=== PATIENT | female | born 1950 | race Caucasian/White ===

== ENCOUNTER → 2018-04-21 | Outpatient (CLI) | payer OTHER ==
--- NOTE | ~2018-04-21 | SLE ---
[facility] [address] POLYSOMNOGRAPHY STUDY Name: CHELA KIMHERINE Room #: REG [facility]#: [id number] Admission: 04/21/18 Attend Phys: Domenico Calles MD Discharge: Date of : 46 Report #: [id number] THIS REPORT FOR: //name// CC: Domenico Kirkland MD DATE OF SERVICE: 04/21/2018 ATTENDING PHYSICIAN: Dr. Filemon Kirkland. The patient is a 67-year-old who weighs 218 pounds and is 67 inches tall with a BMI of 34.1. The patient's Dresden score was 3. The patient underwent split night study performed by [facility]. During the night study, the patient spent 451 minutes in bed and slept for 337 minutes with a sleep efficiency of 75%. Sleep latency was 19.1 minutes with a REM latency of 290.1 minutes. Overall sleep architecture showed increased stage 1 and stage 2 sleep, absent N3 sleep and reduced REM sleep, which was 6.5% of the total sleep time. During the initial diagnostic portion of the study, the patient spent 156 minutes in bed and slept for 117 minutes. During that time, the patient had 1 obstructive and 1 central apnea and 49 hypopneas. The patient's apnea-hypopnea index was 26 per hour. REM sleep was not seen during the diagnostic portion of the study. The patient's supine index was 65 per hour. EKG monitoring revealed normal sinus rhythm. Average heart rate was 62 beats per minute. No sustained arrhythmias were observed. No clinically significant PLMS observed. PLM index was only 2 per hour during the diagnostic portion. Nocturnal oximetry study during the diagnostic portion revealed an average oxygen saturation of 94% with the lowest of 89%. No significant desaturation of less than 89% observed. The patient met the criteria for CPAP initiation. It was started at 5 cm water and titrated up to 11 cm water. The patient started to have some central apneas with increasing pressure, ( Treatment emergent central apneas ). Teletype Mechanic did switch the patient to BiPAP starting at 11/8 and titrating up to 14/10. However, central apneas did persist. Best results were obtained at a CPAP pressure of 11 cm water. At that pressure the patient slept for 73.9 minutes with 22 minutes of REM sleep. The patient also had supine sleep at the same pressure. The patient's AHI was 0.8 per hour. Oxygen saturations remained above 89%. [facility] [address] [place] [address] POLYSOMNOGRAPHY STUDY Name: CHELA KIM Room #: REG [facility]#: [id number] Admission: 04/21/18 Attend Phys: Domenico Calles MD Discharge: Date of : 46 Report #: [id number] IMPRESSION: 1. Moderate sleep apnea-hypopnea syndrome with worsening during supine sleep. Total apnea-hypopnea index 26 per hour with a supine apnea-hypopnea index of 65 per hour. Absence of REM sleep during the diagnostic portion of the study can underestimate the severity of sleep apnea. 2. No clinically significant periodic limb movements of sleep. 3. No clinically significant nocturnal hypoxia. RECOMMENDATIONS: 1. CPAP at 11 cm water resulted in elimination of the patient's sleep apnea and should be used on a nightly basis. The patient developed treatment emergent central apneas at higher pressures. 2. Follow up in 4-6 weeks to assess compliance with CPAP and to document clinical improvement. 3. Weight loss is strongly advised. 4. 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 5. Cautioned regarding driving until symptoms of sleep apnea have resolved with the use of CPAP. 6. Avoid supine Sleep. <ELECTRONICALLY SIGNED> By: Domenico Calles MD 04/23/182100 [id number] Domenico Calles MD /nt
== END ==
LOC: SLEEPLAB 11:35
DX: G47.33 Obstructive sleep apnea (adult) (pediatric) (principal)

== ENCOUNTER → 2019-07-21 | Outpatient (CLI) | payer OTHER | LOC: CAT 12:30 | DX: Z13.6 Encounter for screening for cardiovascular disorders (principal); I25.10 Atherosclerotic heart disease of native coronary artery without angina pectoris; E78.00 Pure hypercholesterolemia, unspecified ==

== ENCOUNTER → 2019-08-01 | Outpatient (CLI) | payer OTHER | LOC: SJCVC 11:18 | DX: I49.8 Other specified cardiac arrhythmias (principal); I25.10 Atherosclerotic heart disease of native coronary artery without angina pectoris; I10 Essential (primary) hypertension; E78.5 Hyperlipidemia, unspecified; G47.33 Obstructive sleep apnea (adult) (pediatric); Z96.641 Presence of right artificial hip joint; Z79.899 Other long term (current) drug therapy; Z87.891 Personal history of nicotine dependence ==

== ENCOUNTER → 2019-08-14 | Outpatient (CLI) | payer OTHER | LOC: SJCVCIMAG 07:56 | DX: I08.3 Combined rheumatic disorders of mitral, aortic and tricuspid valves (principal) ==

== ENCOUNTER 2019-12-29 07:55 | Inpatient (IN) | payer OTHER ==
[2019-12-22 10:44] LABS: URINE BILIRUBIN NEGATIVE (Negative); URINE BLOOD TRACE (Negative); URINE CLARITY CLEAR; URINE COLOR YELLOW; URINE GLUCOSE-RANDOM* NEGATIVE (Negative); URINE KETONES NEGATIVE (Negative); URINE LEUKOCYTES-REFLEX NEGATIVE (Negative); URINE NITRITE-REFLEX NEGATIVE (Negative); URINE PROTEIN (DIPSTICK) NEGATIVE (Negative); URINE UROBILINOGEN 0.2 E.U./dl (0.2-1.0)
[2019-12-22 10:49] LABS: HEMATOCRIT 39.9 % (37.0-47.0); HEMOGLOBIN 13.4 gm/dL (12.0-15.0); MCHC 33.7 g/dL (28.0-37.0); MCV 89.1 fL (80.0-100.0); RBC 4.48 mil/uL (4.20-5.00); RDW 13.6 % (10.5-14.5); WBC 5.3 thou/uL (4.0-11.0)
[2019-12-22 10:57] LABS: ALBUMIN 3.5 g/dL (3.4-5.0); CALCIUM 8.7 mg/dL (8.5-10.1); CREATININE 0.7 mg/dL (0.6-1.0); POTASSIUM 4.1 mmol/L (3.5-5.1)
[2019-12-22 11:04] LABS: INR 1.1; PROTIME 11.4 Seconds (9.3-11.4)
[2019-12-29] VITALS (9 sets, daily range): BP systolic 98–157; BP diastolic 54–84
[~2019-12-29] VITALS: Ht 170.2 cm; Wt 113.4 kg
[~2019-12-29 07:55] MED LIST: ASPIR 8181 M1 PO; KEPPRA 500 MG500 M1 PO; LEVOXYL125 MCG PO; LEXAPRO 10 MG T10 M1 PO; LIPITOR 20 MG T20 M1 PO; MUCINEX600 MG PO; PRESERVISION A1 EAC2 PO; PRILOSEC OTC20 MG PO; TUMS200 MG PO; VITAMIN E100 UNI3 PO
--- NOTE | 2019-12-29 14:58 | NUR ---
chart review. cm visited with pt at bedside, with own face mask and goggles on. intro to cm, dcp and transition of care, ie dme needs, hh, and or outpt therapy if needed. pt here with OLAMIDE. elzbieta reported " live in house with granddaughter and great granddaughter. manage own medication and finances. drives vehicle. independent, use cpap at home. no home oxygen, and walker. had hip done in past but not at knee. might need hh but not sure yet"/elzbieta. will cont following as needed for dc needs.
--- NOTE | 2019-12-29 19:16 | NUR ---
PT VSS...VOIDED WELL...PAIN FAIRLY WELL CONTROLLED WITH MEDS...ICE TO KNEE PRN...
--- NOTE | 2019-12-30 02:41 | NUR ---
ASSESSMENT COMPLETED. PT IS ALERT AND ORIENTED. S/P LEFT KNEE. PT HAS A ROSAURA DRSG AND HEMOVAC IN PLACE. THTH AND SCDS IN PLACE TOO.WE TRIED TO GET PATIENT TO THE BSC EARLIER IN THE SHIFT, SHE GOT SO DANGEROUSLY DIZZY-WILL USE BEDPAN FOR REST OF NOC AND WAIT TILL PT GETS HER UP TOMORROW.PERCOCET GIVEN FOR PAIN. LEFT FOOT IS WARM WITH GOOD CAP REFILL.SHE IS USING CPAP WITH CONT PULSE OX IN PLACE. AFEBRILE.WILL CONTINUE WITH POC TILL EOS.
[2019-12-30 04:41] VITALS: BP 97/52
[2019-12-30 06:03] LABS: HEMATOCRIT 30.1 % (37.0-47.0); MCH 30.4 pg (26.0-34.0); MCHC 33.4 g/dL (28.0-37.0); MCV 91.1 fL (80.0-100.0); RBC 3.3 mil/uL (4.20-5.00); RDW 13.5 % (10.5-14.5); WBC 8.3 thou/uL (4.0-11.0)
[2019-12-30 07:20] VITALS: BP 114/57
--- NOTE | 2019-12-30 07:44 | O ---
[facility] [place] [address] OPERATIVE REPORT Name: CHELA KIM Room #: 445-P ADM IN M.R.#: [id number] Admission: 12/29/19 Attend Phys: Harshad Alves MD Discharge: Date of : 46 Report #: [id number] THIS REPORT FOR: cc: Tab Bangura,Harshad Santizo MD ~ CC: Harshad Bangura DATE OF SERVICE: 12/29/2019 PREOPERATIVE DIAGNOSIS: End-stage degenerative arthritis, left knee with moderate valgus malalignment. POSTOPERATIVE DIAGNOSIS: End-stage degenerative arthritis, left knee with moderate valgus malalignment. PROCEDURE: Left total knee arthroplasty. SURGEON: Harshad Alves MD INDICATIONS: This heavy, deconditioned 69-year-old female presents with progressive bilateral knee pain, worse on the left than the right. Both knees demonstrate moderate valgus malalignment and the left knee has become gradually more unstable clinical exam and x-rays confirmed significant degenerative arthritis with significant joint pain and crepitus in all 3 compartments. She has elected to go ahead with left total knee arthroplasty. DESCRIPTION OF PROCEDURE: The patient was taken to the operating room where she was placed under general anesthesia. A femoral nerve block was applied. Preoperative prophylactic antibiotics were administered. The left knee and leg were meticulously prepped and draped. A thigh tourniquet was applied and inflated to 300 mmHg. An anterior longitudinal skin incision was made and carried through the medial retinaculum. The patella was reflected laterally. Marked degenerative change in all 3 compartments was noted. The Goddard and NephMerchMe knee system was utilized. Intramedullary guides were used on both the femur and the tibia. The femur was found to be in significant valgus position at the joint line. This was accommodated by making distal femoral cuts at 7 degrees of valgus. This resected significantly more condyle on the medial than lateral side, but there was still sufficient bone to allow good fixation for the femoral component. The tibia was cut perpendicular long axis of the bone with slight valgus position there as well to accommodate her chronic preoperative valgus position. The femur was best suited for a size 4 femoral component. The tibia was also best suited for a size 4 tibial component. A trial reduction was performed and the knee seemed best suited for a size [address] [address] OPERATIVE REPORT Name: CHELA KIM Room #: 445-P [facility] IN ..#: [id number] Admission: 12/29/19 Attend Phys: Harshad Alves MD Discharge: Date of : 46 Report #: [id number] This resulted in satisfactory knee stability, but was still full knee extension and flexion beyond 130 degrees. The knee seemed much better aligned and with much better stability on varus and valgus stress. The patellar surface was resected and a 32 mm patellar button fit nicely. The patella seemed to track well without any evidence of instability. The trial components were removed. The surfaces were thoroughly irrigated and dried. The intramedullary canal was blocked with bone block on both the femoral and tibial sides. Methyl methacrylate cement was mixed and injected into the porous surface of the proximal tibia. The Goddard and Nephew size 4 Gabriela II left nonporous tibial baseplate was then applied. It was impacted into position and seated nicely and appeared to be secure. Excess cement was removed from around its margin. The size 4, 12 mm Legion cruciate retaining polyethylene insert was then snapped into place. It also seated nicely and appeared to be secure. The size 4 left cruciate retaining Legion porous femoral component was impacted on to the distal femur. It also seated nicely and appeared to be secure. A size 32 mm Gabriela II patellar resurfacing component was positioned on the patella using appropriate anchor holes and cemented into place. It was secured with a patellar clamp until cement had fully hardened. Once the cement had cured, range of motion, alignment and stability were once again assessed and felt to be satisfactory. The patellar tracks nicely and appears to be stable. The knee is in much better position than preoperatively and seems to be stable with both varus and valgus stress. At this point, a single Hemovac was left the wound exiting through a separate stab incision. The tourniquet was deflated after a total tourniquet time of 60 minutes. The fascia was closed with multiple #1 Vicryl sutures. The subcutaneous tissues were closed with 0 Monocryl. The skin was closed with skin jose eduardo. A sterile dressing was applied. The patient was awakened and returned to recovery room in good condition. <ELECTRONICALLY SIGNED> By: Harshad Alves MD 12/30/19 0744 [id number] Harshad Alves MD /nt
--- NOTE | 2019-12-30 13:25 | NUR ---
ON-GOING ASSESSMENT: CM REVIEWED CHART. PER ATTENDINGS NOTE PATIENT IS STILL WEAK AND HAVING SOME NAUSEA. PLAN IS TO DISCHARGE IN THE NEXT 24-48 HOURS. CM SPOKE WITH PATIENT WHO REPORTS SHE DOES NOT HAVE OUTPATIENT THERAPY SET UP AND UNSURE SHE WILL NEED IT. PER PHYSICAL THERAPY EVAL PT IS SAFE TO GO HOME OR WITH OUTPATIENT THERAPY. PT STATES SHE WILL DISCUSS WITH ATTENDING. PT HAS WALKER AT HOME AND SHOULD HAVE NO NEEDS FROM CM. CM WILL CONTINUE TO FOLLOW TO ASSIST NEEDED.
[2019-12-30 15:30] VITALS: BP 130/60
--- NOTE | 2019-12-30 17:03 | NUR ---
Assumed care of pt. at 0700. Pt. is drowsy and experiencing pain in the effected knee. She was given pain medicine for this shortly before PT w/ her meal. She experienced extreme nasuea during PT and was given Zofran. Pt. had wound vac D/C'd.
[2019-12-30 19:30] VITALS: BP 107/55
--- NOTE | 2019-12-30 23:28 | NUR ---
ASSESSMENT COMPLETED.PT IS ALERT AND ORIENTED. GIVEN SOME TYLENOL FOR HEADACHE.PT PREFERS TO USE BEDPAN DUE TO PROBLEMS WITH DIZZINESS WHEN SHE IS UP.AFEBRILE. DENIES ANY GI OR DISCOMFORT. MAKES NEEDS KNOWN. FALL PREC IN PLACE. WILL CONTINUE WITH POC TILL EOS.
[2019-12-31 03:20] VITALS: BP 127/63
[2019-12-31 06:24] LABS: HEMATOCRIT 30.1 % (37.0-47.0); HEMOGLOBIN 10.1 gm/dL (12.0-15.0); MCH 30.3 pg (26.0-34.0); MCHC 33.4 g/dL (28.0-37.0); MCV 90.5 fL (80.0-100.0); RBC 3.33 mil/uL (4.20-5.00); RDW 13.7 % (10.5-14.5); WBC 9.1 thou/uL (4.0-11.0)
[2019-12-31 08:34] VITALS: BP 135/51
--- NOTE | 2019-12-31 08:44 | NUR ---
Assumed care of pt. of 0700. Pt. states she is feeling much better today and is excited to try to walk and possibly go home. She states that she is mildly nauseous and requests a soda for relief. Fall precautions in place.
--- NOTE | 2019-12-31 13:24 | NUR ---
ON-GOING ASSESSMENT: CM REVIEWED CHART. PER ATTENDING PT HAS SLOW PROGRESS AND IS POSSIBLE DISCHARGE HOME TOMORROW. CM WILL CONTINUE TO FOLLOW TO ASSIST NEEDED.
[2019-12-31 17:16] VITALS: BP 116/59
[2019-12-31 19:35] VITALS: BP 113/55
--- NOTE | 2020-01-01 03:38 | NUR ---
ASSESSED AT START OF SHIFT 0. PT A&OX4 SITTING UP IN CHAIR. UP WITH ASSIST TO THE BED. EVENING MEDS GIVEN AND PT SINDHU IT. SCD'S IN BLE. ROSAURA DRESSING AND JACQUES HOSE IN PLACE. DENIES N/V, DIZZINES. OON 2L OF O2. LEFT KNEE PAIN MANAGED WITH PO OXYCODONE. FALL PREC IN PLACE AND CALL LIGHT IN REACH WILL CONT TO MONITOR
[2020-01-01 06:21] LABS: HEMATOCRIT 29.1 % (37.0-47.0); HEMOGLOBIN 9.7 gm/dL (12.0-15.0); MCH 30.2 pg (26.0-34.0); MCHC 33.2 g/dL (28.0-37.0); MCV 91.1 fL (80.0-100.0); RBC 3.19 mil/uL (4.20-5.00); RDW 13.6 % (10.5-14.5); WBC 9.7 thou/uL (4.0-11.0)
[2020-01-01 06:29] VITALS: BP 131/74
[2020-01-01 08:00] VITALS: BP 120/72
--- NOTE | 2020-01-01 11:27 | NUR ---
ON-GOING ASSESSMENT: PT IS HAVING SLOW PROGRESS AND DIZZINESS WITH AMBULATION. PLAN IS FOR PATIENT TO CONTINUE TO WORK WITH THERAPIES AND POSSIBLE DISCHARGE HOME TOMORROW. CM WILL CONTINUE TO FOLLOW TO ASSIST NEEDED.
[2020-01-01 15:45] VITALS: BP 105/55
--- NOTE | 2020-01-01 19:16 | NUR ---
Assumed care of pt. at 0700. Pt. is excited and full of energy. She did well with PT was proud of her progress. She occassionally needed pain meds for her knee. She was pleasant and cooperative. She hopes to go home tomorrow. Fall precautiond in place.
[2020-01-01 19:19] VITALS: BP 112/56
[2020-01-02 03:37] VITALS: BP 142/70
--- NOTE | 2020-01-02 03:54 | NUR ---
RECIEVED CARE OF THIS PATIENT AT 1900. PATIENT ALERT AND ORIENTED X4. DENIES PAIN. L KNEE HAS ROSAURA DRESSING THAT IS D/I. ICE APPLIED TO INCISION SITE. PATIENT HAS FRANKLYN TEDS AND SCD'S ON. PATIENT PASSING FLATUS BUT NO BM YET. UP TO BSC. SLEPT MOST OF NIGHT.
[2020-01-02 07:20] VITALS: BP 122/57
[2020-01-02] MEDS ORDERED: XARELTO10 MG PO (10:35)
[2020-01-02] MEDS ORDERED: NORCO 10-325 T1 EACH PO (10:36)
[2020-01-02 10:45] VITALS: BP 122/57
--- NOTE | 2020-01-02 12:25 | NUR ---
on-going assessment: PT HAS ORDERS TO DISCHARGE HOME TODAY WITH NO NEEDS. CASE CLOSED.
--- NOTE | 2020-01-02 12:29 | NUR ---
PT CARE ASSUMED AT 0700, A&Ox4, UP WITH THE WALKER. PAIN MANAGED WELL WITH PAIN MEDICATION AND ICEPACK ON BOARD. PT RECEIVED VTE INSTRUCTIONS ALONG WITH DISCHARGE AND EDUCATION FOR POST OP KNEE CARE. JACQUES HOSES AND SCD'S IN PLACE. IV REMODED ON L. HAND DUE TO SIGNS OF REDNESS. ROSAURA DRESSING REPLACED DUE TO BATTERIE PACK BLINKING ORANGE FOR SUCTIONING. PT TOOK SHOWER. PT WEARS PERSONAL CPAP FROM HOME. FALL PROTOCOL IN PLACE. CALL LIGHT IN REACH. PT DISCHARGED WITH DAUGHTER WITH NO FURTHER QUESTIONS.
--- NOTE | 2020-01-04 10:01 | D ---
[facility] [place] [place] [address] DISCHARGE SUMMARY Name: CHELA KIM Room #: 445-P [facility] IN M.R.#: [id number] Admission: 12/29/19 Attend Phys: Harshad Alves MD Discharge: 01/02/20 Date of : 46 Report #: [id number] THIS REPORT FOR: cc: Tab Bangura,Harshad Santizo MD ~ THIS REPORT FOR: //name// CC: Harshad Bangura DATE OF SERVICE: 01/02/2020 FINAL DIAGNOSIS: End-stage degenerative arthritis, left knee. OPERATIONS AND PROCEDURES: Left total knee arthroplasty. HISTORY OF PRESENT ILLNESS: This healthy, active and independent 69-year-old female has rather severe progressive degenerative arthritis involving the left knee. She has significant valgus malalignment and knee instability. She has tried conservative measures without benefit and has elected now to go ahead with left total knee replacement. HOSPITAL COURSE: The patient was admitted and taken to the operating room on 12/29/2019. She underwent left total knee replacement, which she tolerated well. Postoperatively, her course has been largely unremarkable. Her vitals have been stable. Her hemoglobin has been stable. She is advanced to a regular diet. She is advanced from IV analgesics to oral analgesics. She started with physical therapy and made slow, but steady progress. She now seems safe and stable to ambulate independently and is working on steps. She is anxious for discharge home with family assistance. DISCHARGE MEDICATIONS: Include Xarelto 10 mg daily, hydrocodone 10 mg every 4-6 hours as needed for pain, Keppra 500 mg b.i.d., Lexapro 10 mg daily, atorvastatin 20 mg daily, Synthroid 0.125 mg daily, vitamin E once daily, vitamin C once daily, Mucinex 600 mg daily. She will continue activity as tolerated at home with family assistance. I have asked her to call me should there be any problems or questions. We will plan to see her back in my office in 1 week for followup and 2 weeks for suture removal. <ELECTRONICALLY SIGNED> By: Harshad Alves MD 01/04/20 1001 [id number] Harshad Alves MD /nt
== END 2020-01-02 11:47 | disposition home or self-care (01) | DRG 470 ==
LOC: 4S 07:55 → TBA 07:55 → PRE 09:38 → 4S 12:39 → PRE 13:21 → 4S 01-02 11:47
PROVIDERS: ADMIT Orthopaedic Surgery; ATTEND Orthopaedic Surgery
PROC: 0SRD0J9 Replacement of Left Knee Joint with Synthetic Substitute, Cemented, Open Approach (ICD-10-PCS; principal; 2019-12-29)
PROC: 5A09357 Assistance with Respiratory Ventilation, Less than 24 Consecutive Hours, Continuous Positive Airway Pressure (ICD-10-PCS; 2019-12-31)
PROC: 5A09357 Assistance with Respiratory Ventilation, Less than 24 Consecutive Hours, Continuous Positive Airway Pressure (ICD-10-PCS; 2020-01-02)
DX: M17.12 Unilateral primary osteoarthritis, left knee (principal); E03.9 Hypothyroidism, unspecified; G40.909 Epilepsy, unspecified, not intractable, without status epilepticus; Z20.828 Contact with and (suspected) exposure to other viral communicable diseases; Z79.899 Other long term (current) drug therapy
CPT/HCPCS: 10102; 50010; 50101; 50415; 50954; 51130; 51225; 51412; 53364; 56525; 57095; 57103; 57104; 57181; 62110; 62900; 64039; 70005